=== PATIENT | female | born 1985 | race Caucasian/White ===

== ENCOUNTER 2016-07-30 07:45 | Day surgery (SDC) | payer OTHER ==
[~2016-07-30] VITALS: Ht 175.3 cm; Wt 90.7 kg
[~2016-07-30 07:45] MED LIST: 0.9% Sodium Chloride 1,000 ML IV SCH; No current meds; Sodium Chloride LOK Flush 10 mL Syringe IV PRN; fentaNYL-PF 50 mCg/mL 2 mL Inj IVPUSH PRN
[2016-07-30 08:07] VITALS: BP 105/66; PULSE 64; RESP 14; O2SAT 97
[2016-07-30] MEDS ORDERED: ASCO500C6 PO (08:09)
[2016-07-30] MEDS ORDERED: FERR160T7 PO (08:09)
[2016-07-30] MEDS ORDERED: 0.9% Sodium Chloride 1,000 ML IV ONE (08:40)
[2016-07-30 08:48] VITALS: BP 104/62; PULSE 59; RESP 16; O2SAT 99
[2016-07-30 08:59] VITALS: BP 94/63; PULSE 78; RESP 16; O2SAT 100
[2016-07-30 09:16] VITALS: BP 100/64; PULSE 58; RESP 16; O2SAT 95
--- NOTE | 2016-07-30 09:34 | ENDO ---
[address] [address] ENDOSCOPY PROCEDURE PATIENT: MARGARITA FRANKLIN : 1985 MR#: [id number] ADMIT: 07/30/2016 JOB ID: [id number] PROCEDURE: Esophagogastroduodenoscopy. INDICATION: Positive celiac antibodies. ASA CLASSIFICATION: 1 MALLAMPATI SCORE: 2 MEDICATIONS: 1. Versed 7 mg. 2. Fentanyl 75 mcg. INSTRUMENT USED: [id number]. PROCEDURE DETAILS: After informed consent was obtained, the patient was brought into the GI suite, where she was placed on oxygen via nasal cannula and monitored with continuous pulse oximeter, telemetry, and blood pressure monitoring. A time-out was performed. Then, she was placed in a left lateral decubitus position and medications were administered for sedation. A bite block was placed. Semi and standard esophagogastroduodenoscopy scope was inserted through the bite block and advanced under direct visualization to the second portion of duodenum without difficulty. FINDINGS: 1. The duodenal mucosa appeared to be atrophic. There was notching noted on the fold of the duodenum. Appearance was suggestive of celiac disease. Multiple random biopsies were obtained. 2. In the duodenal bulb the mucosa had a nodular appearance, multiple random biopsies were obtained. 3. Normal-appearing pylorus, antrum, and gastric body. 4. Retroflexed views in the gastric body revealed a normal-appearing cardia and fundus. 5. Multiple random gastric biopsies were obtained. 6. The GE junction was at approximately 39 cm. It was slightly irregular. There was a short tongue of salmon-colored mucosa arising from the GE junction. Multiple biopsies were obtained. 7. Otherwise normal appearing esophagus. IMPRESSION: 1. Atrophic duodenal mucosa with notching suggestive of celiac disease. 2. Nodular duodenal bulb mucosa. 3. Slightly irregular gastroesophageal junction. RECOMMENDATIONS: 1. Await biopsy results. 2. Follow up in GI clinic. 3. Reflux precautions. COMPLICATIONS: None. ESTIMATED BLOOD LOSS: Less than 5 mL.
--- NOTE | 2016-07-31 11:05 | PATH ---
SURGICAL PATHOLOGY Attending Physician:Farzana Allen CASE STATUS: Signed Out PATIENT NAME: MARGARITA FRANKLIN PID: [id number] : 1985 DATE COLLECTED:07/30/2016 16:58 SPECIMEN: 1: Duodenum, Biopsy 2: Duodenum, Biopsy 3: Gastric, Biopsy 4: Esophagus, Biopsy CLINICAL HISTORY: 1). DUODENAL BIOPSY 2). DUODENAL BULB BIOPSY 3). GASTRIC BIOPSY 4). DISTAL ESOPHAGUS BIOPSY FINAL DIAGNOSIS: 1. 2.DUODENAL BIOPSY AND DUODENAL BULB BIOPSY: MALABSORPTION PATTERN OF INJURY INVOLVING BOTH SPECIMENS. CHANGES INCLUDE DIFFUSE LYMPHOCYTOSIS, VILLOUS BLUNTING, AND CRYPT HYPERTROPHY (SEE COMMENT). Negative for evidence of Giardia. Negative for evidence of Whipple' s disease. 3.GASTRIC BIOPSY: MILD CHRONIC GASTRITIS INVOLVING ANTRAL AND FUNDIC MUCOSA. Negative for evidence of Helicobacter. Negative for intestinal metaplasia. Negative for dysplasia and malignancy. 4.DISTAL ESOPHAGUS BIOPSY: FRAGMENTS OF GASTRIC OXYNTIC-TYPE MUCOSA WITH CHRONIC INFLAMMATION. NO SQUAMOUS EPITHELIUM PRESENT. Negative for specialized metaplasia of Wheatley' s-type esophagus. Negative for dysplasia and malignancy. ICD10 code K90.0 NOTE: The changes present in parts 1 and 2 are compatible with a diagnosis of celiac sprue; however, they cannot be considered specific. Serologic confirmation is necessary for a definitive diagnosis. As part of a routine quality auditor, Dr. Rangel Thomas has also reviewed parts 1 and 2 of this case and agrees with the diagnoses. GROSS DESCRIPTION: The specimen is received in four formalin filled containers labeled with the patient's name. 1). The specimen a sublabeled "duodenal" and consists of multiple portions of tissue which aggregate to 0.4 x 0.4 x 0.2 CM. The specimen is entirely submitted in cassette 1A. 2). The specimen is sublabeled "duodenal bulb" and consists of 3 portions of tissue which aggregate to 0.3 x 0.3 x 0.2 CM. The specimen is entirely submitted in cassette 2A. 3). The specimen is sublabeled "gastric" and consists of 2 portions of tissue which aggregate to 0.5 x 0.3 x 0.2 CM. The specimen is entirely submitted in cassette 3A. 4). The specimen is sublabeled "distal esophagus" and consists of 2 portions of tissue which aggregate to 0.3 x 0.3 x 0.2 CM. The specimen is entirely submitted in cassette 4A. 07/30/2016 DAC MICRO DESCRIPTION: See diagnosis. ICD-9 CODES: CPT CODES: 1: 53232 2: 55466 3: 70113 4: 51232 Electronically Signed Out Brandon Recinos MD [facility] Pathology [facility] [address], [place] [address] Technical component performed at [facility], [facility] [address], [place], [address]
== END 2016-07-30 23:59 | disposition home or self-care (01) ==
LOC: END 07:45
PROVIDERS: ATTEND Internal Medicine Gastroenterology
DX: K90.0 Celiac disease (principal); K29.50 Unspecified chronic gastritis without bleeding
CPT/HCPCS: 43239; G0500; J7030